=== PATIENT | male | born 1990 | race Caucasian/White ===

== ENCOUNTER 2022-11-22 08:39 | Outpatient (REF) | payer MEDICARE, MEDICAID, SELFPAY ==
[2022-11-25 01:29] LABS: COVID-19 RT-PCR UVMMC Result Negative (Negative)
== END 2022-11-22 08:40 | disposition home or self-care (01) ==
LOC: LBN 08:39
PROVIDERS: PCP Family Medicine; Visit Provider Physician Assistant Medical
DX: Z20.822 Contact with and (suspected) exposure to COVID-19 (principal); R05.8 Other specified cough
CPT/HCPCS: U0003

== ENCOUNTER 2022-12-27 12:59 | Outpatient (REF) | payer MEDICARE, MEDICAID, SELFPAY ==
[2022-12-27 21:55] LABS: ESR 13 mm/hr (0-15)
[2022-12-27 21:58] LABS: Abs Immature Grans 0.01 10^3/uL (0.0-0.06); Absolute Basophil Count 0.02 10^3/uL (0.0-0.2); Absolute Lymphocyte Count 1.37 10^3/uL (1.2-3.4); Absolute Monocyte Count 0.65 10^3/uL (0.1-0.8); Absolute Neutrophil Count 2.97 10^3/uL (1.2-6.7); Basophils % 0.4; Eosinophils % 5.6; HCT 43.5 % (40.0-50.0); HGB 14.8 g/dL (13.5-17.5); Immature Grans % 0.2; Lymphocytes % 25.8; MCH 32.5 pg (27.0-33.0); MCV 95 fL (80-95); MPV 9.9 fL (8.0-11.0); Monocytes % 12.2; Neutrophils % 55.8; Platelet Count 227 10^3/uL (130-400); RBC 4.56 10^6/uL (4.36-5.78); RDW 13.2 % (11.8-14.1); RDW-SD 46.2 fL; WBC 5.32 10^3/uL (4.4-10.8)
[2022-12-27 22:23] LABS: ALT 35 U/L (16-63); AST 21 U/L (15-37); Albumin 3.7 g/dL (3.4-5.0); Alkaline Phosphatase 86 U/L (46-116); Anion Gap 6.1 mmol/L (3-11); BUN 12 mg/dL (7-18); Bilirubin, Total 0.5 mg/dL (0.2-1.0); CO2 28.9 mmol/L (21.0-32.0); Calcium 8.9 mg/dL (8.5-10.1); Chloride 104 mmol/L (98-107); Estimated GFR 103.19 (mL/min/1.73m2); Glucose 100 mg/dL (74-106); Potassium 3.5 mmol/L (3.5-5.1); Sodium 139 mmol/L (136-145)
[2022-12-29 08:43] LABS: Lyme Ab w Rflx to Lyme Confirm Negative (Negative)
[2022-12-31 22:13] LABS: Anaplasma phagocytophilum Negative (Negative); B. miyamotoi PCR Negative (Negative); Babesia divergens/MO-1 Negative (Negative); Babesia duncani Negative (Negative); Babesia microti Negative (Negative); Ehrlichia chaffeensis Negative (Negative); Ehrlichia ewingii/canis Negative (Negative); Ehrlichia muris eauclairensis Negative (Negative)
== END 2022-12-27 13:00 | disposition home or self-care (01) ==
LOC: NCHCN 12:59
PROVIDERS: PCP Family Medicine; Visit Provider Family Medicine
DX: R19.7 Diarrhea, unspecified (principal); R11.2 Nausea with vomiting, unspecified
CPT/HCPCS: 80053; 85652; 87798; 85025; 86618

== ENCOUNTER 2023-04-30 13:40 | Emergency (ER) | payer MEDICARE, MEDICAID, SELFPAY ==
[2023-04-30] VITALS (21 sets, daily range): BP systolic 117–137; BP diastolic 76–89; PULSE 58–78; RESP 11–24; TEMP 37; O2SAT 97–99
--- NOTE | 2023-04-30 13:45 | DI.CT_ITS ---
Exam(s) CT CHEST/ABD/PEL W EXAM: CT CHEST/ABD/PEL W CLINICAL HISTORY: trauma, tractor fell on left chest/neck, chestpain. TECHNIQUE: Imaging Protocol: Axial computed tomography images with coronal and sagittal reformatted images were created and reviewed CONTRAST MATERIAL: Intravenous: Omnipaque 350 Contrast volume:100 ml Oral: yes / no COMPARISON: No exams were available for comparison FINDINGS: CHEST: Tracheobronchial tree: Patent where visualized. Pulmonary parenchyma: No consolidation or dominant measurable mass. Pleura: No effusion or pneumothorax. Lymph nodes: Within normal limits. Aorta: Thoracic portion non-dilated. Heart: Normal size Bones: Unremarkable for age. No lytic or blastic lesions.No compression fractures. No rib fracture visible. Shoulders appear unremarkable as visualized. ABDOMEN: Liver: Normal density. No measurable mass. Gallbladder and biliary tract: No radiodense calculus or dilation. Pancreas: Normal density, no abnormal calcifications or inflammatory process. Spleen: Normal. Kidneys: Normal size, contour and axis. No radiodense stones or obstructive uropathy. No suspicious m asses seen. Adrenal glands: No masses seen. Aorta: Abdominal portion non-dilated. Lymph nodes: Within normal limits. Soft tissues: Fatty containing right inguinal hernia. PELVIS: Bladder: Symmetric distention, no gross wall thickening. Bowel: No obstruction or bowel wall thickening. Peritoneal cavity: No ascites, collection or mesenteric inflammatory response. Bones: Unremarkable for age.. No evidence of spine or pelvic fracture. Reproductive organs: Within normal limits. IMPRESSION: No acute abnormality in the chest, abdomen or pelvis.. RADIATION DOSE DELIVERED: 1,518.2mGy.cm Total DLP DATA REPOSITORY: All CT scans at this facility are submitted to the National Radiology Data Registry (NRDR) Dose Index Registry (DIR) with the [employer] ([employer]). RADIATION OPTIMIZATION: All CT scans at this facility use at least one of these dose optimization te chniques: automated exposure control; mA and/or kV adjustment per patient size (includes targeted exa ms where dose is matched to clinical indication); or iterative reconstruction.
--- NOTE | 2023-04-30 13:45 | DI.CT_ITS ---
Exam(s) CT CERVICAL SPINE WO EXAM: CT CERVICAL SPINE WO CLINICAL HISTORY: trauma, neck compression. TECHNIQUE: Imaging Protocol: Axial computed tomography images with coronal and sagittal reformatted images were created and reviewed CONTRAST MATERIAL: Noncontrast COMPARISON: No exams were available for comparison FINDINGS: Bones: No fracture or dislocations are seen. The alignment of the cervical spine is normal including the cervicovertebral junction and cervicothoracic junction. Soft Tissues: The soft tissues of the neck are unremarkable. No large disk herniations are identified . The visualized portions of the lung apices are clear. No pneumothorax is seen. IMPRESSION: Normal CT scan of the cervical spine. RADIATION DOSE DELIVERED: 595.4mGy.cm Total DLP DATA REPOSITORY: All CT scans at this facility are submitted to the National Radiology Data Registry (NRDR) Dose Index Registry (DIR) with the [employer] ([employer]). RADIATION OPTIMIZATION: All CT scans at this facility use at least one of these dose optimization te chniques: automated exposure control; mA and/or kV adjustment per patient size (includes targeted exa ms where dose is matched to clinical indication); or iterative reconstruction.
--- NOTE | 2023-04-30 13:45 | RT.EKG_ITS ---
APPROVED REPORT Exam: Resting ECG Reason for Exam: chest pain, trauma Patient Location: E HR:67 bpm ECG Measurements Heart Rate 67 AXIS NM 160 P 22 QRSd 100 QRS 49 QT 370 T 12 QTc 390 Conclusion Sinus rhythm...normal P axis, V-rate 60- 99 ST elev, probable normal early repol pattern...ST elevation, age<55
--- NOTE | 2023-04-30 14:03 | W.ED.GENAD ---
Discharge Plan Disposition Patient Disposition: Home Condition: Stable Discharge Details Clinical Impression: Contusion of left chest wall Primary Care Provider: Emma An ED Provider: Jacques Blackwood Home Meds and New Rx's Prescriptions: Continued trazodone 50 MG tablet 1 tab PO HS Qty: 90 fluoxetine 10 mg Tablet 10 mg PO DAILY omeprazole 40 mg Capsule,Delayed Release(Dr/Ec) 40 mg PO DAILY Discharge Instructions Instructions: Chest Wall Pain (ED) Additional Instructions: Please take ibuprofen over the counter. Take 600mg by mouth every 6 hours as needed for pain. Please contact your primary care physician to arrange follow-up. Return to the ER immediately for any worsening or new concerning symptoms. Referrals: Emma An [Primary Care Provider] - Discharge Data Discharge Date/Time-TO BE ENTERED AT DEPARTURE: 04/30/23 15:42 Medical Decision Making 1408??patient seen immediately on arrival. 32-year-old male here with significant left-sided chest discomfort as well as neck discomfort after lawnmower rolled on top of him resulting in chest compression. Machine had to be removed by bystanders. Patient is hemodynamically stable on arrival. Tachycardic on my exam. He saturating well and in no respiratory distress. Airwar intact. Concern for potential rib fracture versus lung contusion versus acute life-threatening traumatic injury including pneumothorax. Plan to obtain CT of the chest will include abdomen pelvis as well to assess for underlying splenic injury. Consider cervical fracture and soft tissue injury of the neck and will obtain CT of the cervical spine. No indication for head CT at this time. Offered analgesic and patient declined. 1513 -- Updated history clarified - patient was under tractor and meka gave out. Tractor impacted chest and lower neck. CT of the chest abdomen pelvis interpreted by radiology: No acute abnormality in the chest, abdomen or pelvis.. CT of the cervical spine interpreted by radiology: Normal CT scan of the cervical spine. C-spine cleared by me. EKG was reviewed and interpreted by me: Sinus rhythm 67 bpm, benign early repole is present. Troponin negative. Patient reassessed and stable. Suspect chest wall contusion. Plan for discharge with outpatient follow-up. Usual customary discharge instructions were reviewed. Lab Data Lab results reviewed: Yes I reviewed the patient's lab results. Labs: Laboratory Tests Range/Units 04/30/23 04/30/23 04/30/23 13:57 13:57 13:57 WBC (4.4-10.8) 10^3/uL 8.72 RBC (4.36-5.78) 10^6/uL 4.87 Hgb (13.5-17.5) g/dL 15.6 Hct (40.0-50.0) % 45.0 MCV (80-95) fL 92 MCH (27.0-33.0) pg 32.0 MCHC (32.0-36.0) % 34.7 RDW (11.8-14.1) % 12.3 Plt Count (130-400) 10^3/uL 274 MPV (8.0-11.0) fL 9.3 Immature Gran % 1.3 Neutrophils % 62.7 Lymphocytes % 25.5 Monocytes % 6.8 Eosinophils % 3.0 Basophils % 0.7 Nucleated RBC % (0.0-0.3) % 0.0 Absolute Neutrophils (1.2-6.7) 10^3/uL 5.48 Absolute Lymphocytes (1.2-3.4) 10^3/uL 2.22 Absolute Monocytes (0.1-0.8) 10^3/uL 0.59 Absolute Eosinophils (0.0-0.7) 10^3/uL 0.26 Absolute Basophils (0.0-0.2) 10^3/uL 0.06 Sodium (136-145) mmol/L 139 Potassium (3.5-5.1) mmol/L 3.6 Chloride (98-107) mmol/L 101 Carbon Dioxide (21.0-32.0) mmol/L 26.2 Anion Gap (3-11) mmol/L 11.8 H BUN (7-18) mg/dL 19 H Creatinine (0.70-1.30) mg/dL 1.2 Est GFR (CKD-EPI 2020) (mL/min/1.73m2) 82.92 Glucose (74-106) mg/dL 107 H Calcium (8.5-10.1) mg/dL 9.7 Total Bilirubin (0.2-1.0) mg/dL 0.4 AST (15-37) U/L 21 ALT (16-63) U/L 40 Alkaline Phosphatase (46-116) U/L 123 H Troponin I (<or=60) ng/L < 50 Total Protein (6.4-8.2) g/dL 7.8 Albumin (3.4-5.0) g/dL 3.9 Patient ABO/Rh O Positive Antibody Screen NEGATIVE HPI General Date/Time Provider Initiated Documentation: 04/30/23 13:41. Limitations to Documentation: no limitations. Information obtained by: patient. HPI Narrative: 32-year-old male presents with chief complaint of chest pain. Patient notes he was on a riding lawnmower and the lawnmower flipped and landed on his chest. This occurred just prior to arrival. He had pain in his left chest since the injury. Pain is worse with deep inspiration. Patient denies head trauma. No headache. He does note some neck pain anteriorly. No abdominal pain. Patient did not lose consciousness. Related Data Home Medications Medication Instructions Recorded Confirmed trazodone 50 mg tablet 1 tab PO HS #90 tabs 11/17/13 04/30/23 fluoxetine 10 mg tablet 10 mg PO DAILY 04/30/23 04/30/23 omeprazole 40 mg capsule,delayed 40 mg PO DAILY 04/30/23 04/30/23 release Allergies Allergy/AdvReac Type Severity Reaction Status Date / Time No Known Allergies Allergy Unverified 04/30/23 15:07 General Stated Complaint: Trauma HENRY: 2 Review of Systems All systems reviewed & are unremarkable except as noted in HPI and below Respiratory Respiratory: Reports as per HPI Gastrointestinal Gastrointestinal: Denies abdominal pain PFSH All Active Problems (Updated 04/30/23 @ 15:16 by Jacques Blackwood MD) Contusion of left chest wall (Acute) Social History Smoking risk assessment performed?: No Drug use: Never Substance use type: does not use Exam Const General: cooperative and uncomfortable Nutritional Appearance: average body habitus Orientation: alert and awake [facility] Head: normocephalic and atraumatic Mouth: moist mucous membranes Eyes Conjunctivae: normal conjunctivae Sclera: normal sclerae EOM: EOM intact bilaterally Neck Neck: trachea midline and supple Chest Chest: no crepitus and tenderness rib (Left upper anterior) Resp Effort & Inspection: normal respiratory effort, able to speak in complete sentences and not labored Auscultation: clear to auscultation bilaterally, no rales, no rhonchi and no wheezes Cardio Rate: tachycardic Rhythm: regular rhythm Heart Sounds: no murmurs GI Palpation: soft, not firm, no guarding, no masses, not rigid and nontender Back/Spine/Pelvis Cervical Spine: No cervical spinal tenderness Thoracic/Lumbar Spine: No thoracic spinal tenderness and No lumbar spinal tenderness Other: Patient logrolled Skin General skin exam: no rashes or lesions noted Neuro General: patient alert, patient awake, patient oriented x3 and tone normal Cognition: normal cognition Speech: speech normal Other: Motor and sensation intact distal lower and upper extremities Extrem General: no edema Psych Appearance: grossly normal Mental Status: mental status grossly normal Course Vital Signs Vital signs: Vital Signs Temperature 37.0 C 04/30/23 13:49 Pulse 65 04/30/23 13:49 Respiratory Rate 17 04/30/23 13:49 Blood Pressure 137/82 04/30/23 13:49 Pulse Oximetry 98 04/30/23 13:49 Temperature 37.0 C 04/30/23 13:49 Temperature Source Tympanic 04/30/23 13:49 Pulse 65 04/30/23 13:49 Respiratory Rate 17 04/30/23 13:49 Respiratory Effort Normal 04/30/23 13:59 Respiratory Depth Normal 04/30/23 13:59 Respiratory Pattern Normal 04/30/23 13:59 Blood Pressure 137/82 04/30/23 13:49 Blood Pressure Position Supine 04/30/23 13:49 Pulse Oximetry 98 04/30/23 13:49 Oxygen Delivery Method Room Air 04/30/23 13:49 Oxygen Flow Rate 0 04/30/23 13:49 Pain Level 6 04/30/23 13:49 Comment declines pain medication 04/30/23 13:49
[2023-04-30] MEDS: Normal Saline - Diluent 50 ML VIAL IJ (14:04)
[2023-04-30 14:08] LABS: Abs Immature Grans 0.11 10^3/uL (0.0-0.06); Absolute Basophil Count 0.06 10^3/uL (0.0-0.2); Absolute Eosinophil Count 0.26 10^3/uL (0.0-0.7); Absolute Lymphocyte Count 2.22 10^3/uL (1.2-3.4); Absolute Monocyte Count 0.59 10^3/uL (0.1-0.8); Absolute Neutrophil Count 5.48 10^3/uL (1.2-6.7); Basophils % 0.7; HGB 15.6 g/dL (13.5-17.5); Immature Grans % 1.3; Lymphocytes % 25.5; MCHC 34.7 % (32.0-36.0); MCV 92 fL (80-95); MPV 9.3 fL (8.0-11.0); Monocytes % 6.8; Neutrophils % 62.7; Platelet Count 274 10^3/uL (130-400); RBC 4.87 10^6/uL (4.36-5.78); RDW 12.3 % (11.8-14.1); RDW-SD 41.9 fL; WBC 8.72 10^3/uL (4.4-10.8)
[2023-04-30] MEDS: Normal Saline Flush 10 ML SYR IVP (14:13)
[2023-04-30] MEDS: Omnipaque 350 MG/ML 100 ML BTL IJ (14:13)
[2023-04-30 14:33] LABS: ALT 40 U/L (16-63); AST 21 U/L (15-37); Albumin 3.9 g/dL (3.4-5.0); Alkaline Phosphatase 123 U/L (46-116); Anion Gap 11.8 mmol/L (3-11); BUN 19 mg/dL (7-18); Bilirubin, Total 0.4 mg/dL (0.2-1.0); CO2 26.2 mmol/L (21.0-32.0); CREATININE 1.2 mg/dL (0.70-1.30); Calcium 9.7 mg/dL (8.5-10.1); Chloride 101 mmol/L (98-107); Estimated GFR 82.92 (mL/min/1.73m2); Glucose 107 mg/dL (74-106); Potassium 3.6 mmol/L (3.5-5.1); Sodium 139 mmol/L (136-145); Total Protein 7.8 g/dL (6.4-8.2); Troponin I < 50 ng/L (<or=60)
--- NOTE | 2023-04-30 15:02 | NUR.NOTE ---
Nursing Note: Trauma occured when pt was working on [employer] and tractor fell from stand. Pt was pinned under tractor for estimated 10min. VSS and pt denies needs at this time.
--- NOTE | 2023-04-30 15:41 | NUR.NOTE ---
Nursing Note: Pt discharged to home. SO and Pt's mother at bedside. Pt in no signs of acute distress at d/c.
== END 2023-04-30 15:42 | disposition home or self-care (01) ==
PROVIDERS: Emergency Provider Student in an Organized Health Care Education/Training Program; PCP Family Medicine
DX: S20.212A Contusion of left front wall of thorax, initial encounter (principal); V89.0XXA Person injured in unspecified motor-vehicle accident, nontraffic, initial encounter
CPT/HCPCS: 36415; 74177; 80053; 86850; 86900; 86901; 93005; 99285; 71260; 72125; 84484; 85025; 93010; 99284; J3490

== ENCOUNTER 2023-05-12 14:36 | Emergency (ER) | payer MEDICARE, MEDICAID, SELFPAY ==
[2023-05-12 14:38] VITALS: BP 118/74; PULSE 79; RESP 18; TEMP 37; O2SAT 97
[2023-05-12] MEDS: Lidocaine 5% Patch 1 PATCH TP (14:55)
--- NOTE | 2023-05-12 15:14 | DI.RAD_ITS ---
Exam(s) XR CHEST 2V PA LATERAL EXAM: XR CHEST 2V PA LATERAL CLINICAL HISTORY: Rib fractures, cough shortness of breath. TECHNIQUE: 2D digital imaging was performed. COMPARISON: No exams were available for comparison FINDINGS: 2 views: Heart size is normal. The mediastinum is not widened. Lungs are clear. No infiltrates nor pleural effusions. IMPRESSION: No acute pulmonary findings. DATA REPOSITORY: RADIATION DOSE DELIVERED:
--- NOTE | 2023-05-12 15:22 | W.ED.GENAD ---
Discharge Plan Disposition Patient Disposition: Home Discharge Details Clinical Impression: Left rib fracture Primary Care Provider: Emma An ED Provider: Wilbur Fulton Home Meds and New Rx's Prescriptions: Continued trazodone 50 MG tablet 1 tab PO HS Qty: 90 fluoxetine 10 mg Tablet 10 mg PO DAILY omeprazole 40 mg Capsule,Delayed Release(Dr/Ec) 40 mg PO DAILY Discharge Instructions Instructions: Rib Fracture (ED) Additional Instructions: At this time your chest x-ray was unremarkable. We have given you an inhaler and please take 2 puffs every 4-6 hours as needed for shortness of breath or wheezing. If you develop a fever, severe difficulty breathing, or any significant worsening of symptoms feel free to return the emergency department otherwise follow-up with primary care provider as needed Referrals: Emma An [Primary Care Provider] - (As needed for reassessment) Discharge Data Discharge Date/Time-TO BE ENTERED AT DEPARTURE: 05/12/23 16:03 Medical Decision Making Patient presenting to the emergency department for chief complaint of slight increase of shortness of breath coughing and wheezing. Patient had traumatic incident approximately 2 weeks ago and was initially seen here and had negative CT imaging. Patient then followed up with [facility] who repeated imaging which plain film showed a slightly displaced left rib fracture of #7. Patient states over the past 4 days he had noted some increased shortness of breath some coughing and wheezing that is intermittent. Patient called primary care provider who recommended that he come to the emergency department for concern of possible pneumonia. Patient denies fever chills, productive cough, or other symptoms. Physical exam shows clear lung sounds, no tachycardia, patient is afebrile with normal blood pressure and oxygen, patient does have tenderness to the mid axillary sixth seventh and eighth rib area otherwise exam is unremarkable. Patient is stable in appearance with no respiratory distress. We will perform chest x-ray for evaluation of possible pneumonia or complications from rib fracture but I also wonder if patient is having continued symptoms of his rib fracture and slight increase of symptoms with a recent increase of activity as well. Pending results will give lidocaine patch. Reviewed radiological imaging that shows no acute findings. Patient given an inhaler to see if this helps with his symptoms otherwise I feel that he is more likely experiencing continued discomfort secondary to his rib fractures with increased activity. After discussion of diagnosis and plan of care patient has no further needs, questions, or concerns and states clear understanding to return to the emergency department for any worsening symptoms. This documentation was generated using Songbird dictation system, please disregard any oddities of phrase or misspellings. Medical Records Medical records reviewed: Yes I reviewed the patient's medical records. Medical records narrative: Reviewed [facility] visit along with radiological imaging results. Imaging Data Radiologic Study: Imaging: X-Ray Radiologist's impression: Exam(s) XR CHEST 2V PA LATERAL EXAM: XR CHEST 2V PA LATERAL CLINICAL HISTORY: Rib fractures, cough shortness of breath. TECHNIQUE: 2D digital imaging was performed. COMPARISON: No exams were available for comparison FINDINGS: 2 views: Heart size is normal. The mediastinum is not widened. Lungs are clear. No infiltrates nor pleural effusions. IMPRESSION: No acute pulmonary findings. HPI General Mode of arrival: ambulatory. Date/Time Provider Initiated Documentation: 05/12/23 14:42. Limitations to Documentation: no limitations. Information obtained by: patient and RN notes reviewed. History of Present Illness 32 year old M presents to the emergency department with the chief complaint of Chest wall pain, cough, wheezing, described as moderate, Quality is described as aching, and is localized to the chest and left. Patient reports no radiation. Patient started experiencing this day(s) (4) and it has been intermittent. No relieving factors improve symptom(s), Other factors that worsen symptoms (Coughing breathing moving) . Patient notes no other symptoms.. Patient did receive the following treatments prior to arrival, none Related Data Home Medications Medication Instructions Recorded Confirmed trazodone 50 mg tablet 1 tab PO HS #90 tabs 11/17/13 05/12/23 fluoxetine 10 mg tablet 10 mg PO DAILY 04/30/23 05/12/23 omeprazole 40 mg capsule,delayed 40 mg PO DAILY 04/30/23 05/12/23 release Allergies Allergy/AdvReac Type Severity Reaction Status Date / Time No Known Allergies Allergy Unverified 05/12/23 14:42 General Stated Complaint: RespSymp HENRY: 3 Review of Systems Constitutional Constitutional: Denies chills and Denies fever(s) ENT Ears, Nose, Mouth, and Throat: Denies nasal congestion and Denies sore throat Cardiovascular Cardiovascular: Reports chest pain (Left-sided chest wall pain) and Reports dyspnea Respiratory Respiratory: Reports cough (Intermittent nonproductive), Reports pain on inspiration, Reports pain with cough and Reports dyspnea Gastrointestinal Gastrointestinal: Denies abdominal pain Musculoskeletal Musculoskeletal: Denies back pain, Denies numbness and Denies tingling Integumentary/Breasts Skin/Breast: Denies unusual bruising Neurologic Neurologic: Denies numbness and Denies tingling PFSH All Active Problems Contusion of left chest wall (Acute) Left rib fracture (Acute) Medical History Cerebellar atrophy Social History Smoking/Tobacco Use Status: Never Smoking risk assessment performed?: Yes Alcohol Intake: current Alcohol Intake frequency: holidays/special occasions only Alcohol type: beer Drug use: Never Substance use type: does not use Housing: house Do you feel safe at home: Yes Do you feel safe in your relationship?: Yes Exam Const General: cooperative, no acute distress and not ill appearing Orientation: alert, awake and oriented x3 HENMT Mouth: moist mucous membranes Chest Chest: normal inspection of the chest, tenderness rib mid-axillary line involving the 6th rib, involving the 7th rib and involving the 8th rib and No rash Resp Effort & Inspection: normal respiratory effort, able to speak in complete sentences and no respiratory distress Auscultation: clear to auscultation bilaterally Cardio Rate: regular rate Rhythm: regular rhythm Heart Sounds: S1 normal and S2 normal Skin General skin exam: no rashes or lesions noted Neuro General: patient alert, patient awake, patient oriented x3, moves all extremities and no focal motor deficits Sensory Exam: no sensory deficits noted Course Vital Signs Vital signs: Vital Signs Temperature 37.0 C 05/12/23 14:38 Pulse 79 05/12/23 14:38 Respiratory Rate 18 05/12/23 14:38 Blood Pressure 118/74 05/12/23 14:38 Pulse Oximetry 97 05/12/23 14:38 Temperature 37.0 C 05/12/23 14:38 Temperature Source Skin 05/12/23 14:38 Pulse 79 05/12/23 14:38 Respiratory Rate 18 05/12/23 14:38 Respiratory Effort Short of Breath 05/12/23 14:46 Blood Pressure 118/74 05/12/23 14:38 Blood Pressure Position Sitting 05/12/23 14:38 Pulse Oximetry 97 05/12/23 14:38 Oxygen Delivery Method Room Air 05/12/23 14:38 Oxygen Flow Rate 0 05/12/23 14:38 Pain Level 10 05/12/23 14:38
--- NOTE | 2023-05-12 15:35 | DI.VRAD_ITS ---
PROCEDURE INFORMATION: Exam: XR Chest Exam date and time: 05/12/2023 3:13 PM Age: 32 years old Clinical indication: Cough and shortness of breath; Patient HX: Rib FX, cough, SOB TECHNIQUE: Imaging protocol: Radiologic exam of the chest. Views: 2 views. COMPARISON: CT CHEST/ABD/PEL W 04/30/2023 2:14 PM FINDINGS: Lungs: Unremarkable. No consolidation. Pleural spaces: Unremarkable. No pleural effusion. No pneumothorax. Heart/Mediastinum: Unremarkable. No cardiomegaly. Bones/joints: Unremarkable. IMPRESSION: No acute findings. Dictated and Authenticated by: Abilio Chandler MD. Ordering:DASHA Bowles MD
[2023-05-12] MEDS: Albuterol HFA 8 GM 60 PUFF INH IH (15:53)
== END 2023-05-12 16:03 | disposition home or self-care (01) ==
PROVIDERS: Emergency Provider Nurse Practitioner Family; PCP Family Medicine
DX: R06.2 Wheezing (principal); R05.9 Cough, unspecified; S22.32XD Fracture of one rib, left side, subsequent encounter for fracture with routine healing; X58.XXXD Exposure to other specified factors, subsequent encounter
CPT/HCPCS: 99283; 71046

== ENCOUNTER 2025-01-13 12:03 | Outpatient (REF) | payer MEDICARE, MEDICAID, SELFPAY ==
[2025-01-13 22:12] LABS: ALT 51 U/L (16-63); AST 33 U/L (15-37); Alkaline Phosphatase 130 U/L (46-116); Anion Gap 7.8 mmol/L (3-11); BUN 18 mg/dL (7-18); Bilirubin, Total 0.4 mg/dL (0.2-1.0); CO2 30.2 mmol/L (21.0-32.0); Calcium 9.1 mg/dL (8.5-10.1); Calculated LDL 131 mg/dL (<100); Chloride 102 mmol/L (98-107); Cholesterol 218 mg/dL (<200); Estimated GFR 101.92 (mL/min/1.73m2); Glucose 111 mg/dL (74-106); HDL Cholesterol 41 mg/dL (>or=40); Potassium 4.1 mmol/L (3.5-5.1); Sodium 140 mmol/L (136-145); Total Protein 7.2 g/dL (6.4-8.2); Triglyceride 231 mg/dL (<150); Vitamin D 25 Total 29 ng/mL (30-100)
== END 2025-01-13 12:04 | disposition home or self-care (01) ==
LOC: NCHCN 12:03
PROVIDERS: PCP Family Medicine; Visit Provider Family Medicine
DX: G80.9 Cerebral palsy, unspecified (principal); Z13.220 Encounter for screening for lipoid disorders; E56.9 Vitamin deficiency, unspecified
CPT/HCPCS: 80053; 80061; 82306